=== PATIENT | female | born 1975 | race Caucasian/White ===

== ENCOUNTER 2019-04-14 07:30 | Outpatient (RCR) | payer OTHER, SELFPAY ==
--- NOTE | 2019-03-13 10:48 | HP.PTEVAL ---
Patient's Visit Information SHIRLENE THAKKAR is a 43 year old F referred to Physical Therapy by Stuart Garcia DPM with a diagnosis of Right Ankle Sprain. Date of Evaluation: 03/13/19 Physical Therapist: Bharti Garcia DPT - Visit Plan Frequency: 2x /Week Duration: 4 Weeks Plan: Right Ankle Sprain- Focus on LE ROM and strength- fibular head mobs for increaseing DF. Modalities as needed - Subjective Findings: End of December-rolled it when she was running. Paved parking lot gravel- Is not a chronic ankle sprainer. Right ankle- lateral ankle pain. Pain is located around the malleolus. There all the time. Will radiate to the knee but to the toes. Describes the pain as dull and achy. Worst: 6/10 Agg: going up hill, or down the stairs. When she goes downstairs it gristles and makes a weird sound and is not getting better. Best: 0/10 Eases: getting off of it. Sleep: not disturbed. 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 Wears good shoes to work- 3 months- changes often. Does not wear orthotics. Was running btween 6-10 miles a day 4 days a week- was training for [place]. Has run 9 miles before but not a half marathon race. Does both trail running and paved- runs a 10 min mile. Is currently still running- once she gets going its okay. Runs in [facility] and [place]- no orthotics. Wears ankle brace at work but not when running. Does not swell when she runs. No N/T. No back or hip injuries- does a little bit of strength training but not a lot. PMHx: Breast reduction Aug 03, 2018- took off 3 months of running- walking only. Meds: Advil, allergy med. X-rays which were negtive. - Objective Posture: good throughout. Gait: slight devaition- toes out bilaterally with decreased toe off on the right. Stairs: asc/desc recip with no HR- ascending- pushed off of the left and right to decrease stance time- not fluid motion. Desc- uncontrolled favoring left hip. HR/Tr: heel raise was WFL- TR: decreased by 50% with pain. SLS: 15 seconds with increased muscle activation- increased discomfort and hip drop. Palpation: tender along calf from her knee down- along medial and lateral malleolus and the mortise joint in the anterior ankle. No increased pain in the toes with joint mobilizations-good movement. Observation: good arch bilaterally. ROM: Hip/knee: WNL. Ankle: DF: 4 degrees, PF: 60 degrees, Inv: 50 degrees, Ever: 30 degrees increased pain with DF.PF.Inversion. Flex: Gastroc: severe. Soleus: severe- pain with testing both. Strength: Core: fair, Hip: 4+/5 throughout, Knee: 5/5, Ankle: 4/5. - Goals Goal 1:: Patient will be I with HEP and progression Goal Time Frame: 4-6 Weeks Goal 2:: Patient will ambulate >300 feet with normalized pattern Goal Time Frame: 4-6 Weeks Goal 3:: Patient will asc/desc 8 stairs recip with no HR and good technique Goal Time Frame: 4-6 Weeks Goal 4:: Patient will demo 10 degrees of DF painfree Goal Time Frame: 4-6 Weeks Goal 5:: Patient will demo 30 sec SLS without LOB or hip drop with 0/10 pain. Goal Time Frame: 4-6 Weeks Goal 6:: Patient will return to all ADL's and recreational activities with 0/10 pain. - Rehabilitation Potential Physical Therapy Diagnosis: Patient presents with hypomobility of the right ankle s/p sprain- she has decreasd ROM, strength and muscular endurance leading to an abnormal gait pattern and decreased ability to perform painfree ADL's and recreational activities. Rehabilitation Potential: Good - Anticipated Interventions Patient/Client Instruction: Educate patient on: Benefits of Fitness Program Therapeutic Exercise to Include: Strength training, Endurance training, Balance training, Coordination, Agility training, Body mechanics, Postural training, Flexibilty training, Gait and locomotor training, Passive ROM, Active ROM, Dynamic Lumbar Stabilization For the Purpose of:: To improve muscle performance and motor function Manual Therapy Techniques to Include: Mobilization, Functional dry needling For the Purpose of:: To increase ROM TENS: Yes Cryotherapy (ice pack, ice massage): Yes Thermo therapy (hot pack): Yes Ultrasound (thermal/non thermal): Yes For the Purpose of:: To decrease pain Thank you for the opportunity to evaluate your patient. For Medicare and Medicare HMO plans, please review the plan of care and approve it. It will need to be FAXED BACK to us at [phone] for Medicare purposes. For Medicare only, by signing this I certify the plan of care. Please let me know if there are questions or concerns regarding this plan of care. Physician Signature: Date:
--- NOTE | 2019-04-14 08:32 | HP.PTDCSUM ---
HP - PT D/C Summary It has been my pleasure to treat SHIRLENE THAKKAR under orders from Stuart Garcia DPM, for the diagnosis of Right Ankle Sprain for a total of 10 visit(s). Discharge Date: Please see the following information for a summary of their discharge status. - Subjective Subjective: Pt. reports feeling good, has returned to running (ranges from 3 to 6 miles), no issues with running or work, just soreness. - Pain right ankle Pain Intensity (Out of 10): 0 - Overall Improvement % Improvement: 90 - Objective Objective/Function: Posture: good throughout. Gait: no deviations noted. Stairs: asc/desc recip with no HR- ascending. HR/TR: WFL. HR/TR Walk: WFL. SLS: 15 seconds with slight increase in muscle activationg. Palpation: NTTP. No increased pain in the toes with joint mobilizations-good movement. Observation: good arch bilaterally. ROM: Hip/knee: WNL. Ankle: DF: 10 degrees, PF: 60 degrees, Inv: 50 degrees, Ever: 45 degrees - no pain. Flex: Gastroc: Mod.. Soleus: mild. Strength: Core: fair, Hip: 4+/5 throughout, Knee: 5/5, Ankle: 5/5. - Goals Goal 1:: Patient will be I with HEP and progression Goal Progress: Goal Met Goal 2:: Patient will ambulate >300 feet with normalized pattern Goal Progress: Goal Met Goal 3:: Patient will asc/desc 8 stairs recip with no HR and good technique Goal Progress: Goal Met Goal 4:: Patient will demo 10 degrees of DF painfree Goal Progress: Goal Met Goal 5:: Patient will demo 30 sec SLS without LOB or hip drop with 0/10 pain. Goal Progress: Goal Met Goal 6:: Patient will return to all ADL's and recreational activities with 0/10 pain. Goal Progress: Goal Met - Plan Plan: 04/14/19 Pt. D/C, instructed to cont. HEP & return if any questions/concerns. - D/C Information If there are questions or concerns regarding this patient's physical therapy, please feel free to call me at [phone]. Thank you for the referral of this patient. Sincerely, Bharti Garcia DPT
== END 2019-04-14 19:00 | disposition home or self-care (01) ==
LOC: PT 07:30
PROVIDERS: Family Provider Nurse Practitioner Family; PCP Nurse Practitioner Family; Referring Provider Podiatrist; Visit Provider Podiatrist
DX: S93.401D Sprain of unspecified ligament of right ankle, subsequent encounter (principal); M76.71 Peroneal tendinitis, right leg
CPT/HCPCS: 97035; 97110; 97161; 97164